=== PATIENT | female | born 1965 | race African-American/Black ===

== ENCOUNTER 2017-09-01 07:50 | Emergency (ER) | payer OTHER ==
[2017-09-01 08:12] VITALS: BP 156/93; PULSE 84; TEMP 98.4; BMI 34.9
--- NOTE | 2017-09-01 08:54 | PDOC ---
History of Present Illness - General Chief Complaint: Pain, Acute Stated Complaint: PAIN Time Seen by Provider: 09/01/17 08:24 History Source: Patient Exam Limitations: No Limitations - History of Present Illness Initial Comments: 09/01/17 08:52 Patient is a [52-year-old female history of hypertension denies any other medical history, presents with sudden onset last evening of left toe pain radiating up her foot denies any trauma. Denies any calf pain. No chest pain or shortness of breath.] Past Medical History: [Denies]. Allergies: No known allergies Medications: See medication list Family History: Non-contributory Social History: Denies smoking, alcohol use, or IVDU Review of Systems GENERAL/CONSTITUTIONAL: [No fever or chills. No weakness. No weight change.] HEAD, EYES, EARS, NOSE AND THROAT: [No change in vision. No ear pain or discharge. No sore throat. ] CARDIOVASCULAR: [No chest pain or shortness of breath.] RESPIRATORY: [No cough, wheezing, or hemoptysis.] GASTROINTESTINAL: [No nausea, vomiting, diarrhea or constipation. No rectal bleeding.] GENITOURINARY: [No dysuria, frequency, or change in urination.] MUSCULOSKELETAL: [Pain to left great toe. No neck or back pain.] SKIN AND BREASTS: [No rash or easy bruising. Erythematous base of left first toe ] NEUROLOGIC: [No headache, vertigo, loss of consciousness, or loss of sensation.] Physical Exam: GENERAL: [The patient is awake, alert, and fully oriented, in no acute distress. ] EYES: [Pupils equal, round and reactive to light, extraocular movements intact, sclera anicteric, conjunctiva clear.] ENT: [Ears normal, nares patent, oropharynx clear without exudates. Moist mucous membranes. No uvula deviation] NECK: [Normal range of motion, supple without lymphadenopathy, JVD, or masses.] LUNGS: [Breath sounds equal, clear to auscultation bilaterally. No wheezes, and no crackles.] HEART: [Regular rate and rhythm, normal S1 and S2 without murmur, rub or gallop. ] ABDOMEN: [Soft, nontender, normoactive bowel sounds. No guarding, no rebound. No masses. No bruising or abrasions] MUSCULOSKELETAL: [Normal range of motion, edema and pain to base of left great toe No clubbing or cyanosis. No cords, erythema, or tenderness. NEUROLOGICAL: [Cranial nerves II through XII grossly intact. Normal speech, normal gait.] SKIN: [Warm, Dry, normal turgor, no rashes or lesions noted.] Past History - Past Medical History Allergies/Adverse Reactions: Allergies Allergy/AdvReac Type Severity Reaction Status Date / Time Penicillins Allergy Verified 09/01/17 08:08 Home Medications: Ambulatory Orders Amlodipine Besylate [Norvasc -] 10 mg PO DAILY 07/24/12 Nebivolol HCl [Bystolic] 5 mg PO DAILY 07/24/12 Olmesartan/Hydrochlorothiazide [Benicar Hct 40-25 mg Tablet] 1 each PO DAILY Ibuprofen [Motrin -] 600 mg PO QID #28 tablet 09/01/17 CVA: No COPD: No DVT: No HTN: Yes - Immunization History Immunization Up to Date: Yes - Suicide/Smoking/Psychosocial Hx Smoking Status: Yes Smoking History: Current every day smoker Have you smoked in the past 12 months: Yes Number of Cigarettes Smoked Daily: 10 Information on smoking cessation initiated: No 'Breaking Loose' booklet given: 08/13/13 Hx Alcohol Use: No Drug/Substance Use Hx: No Substance Use Type: None *Physical Exam - Vital Signs Last Vital Signs Temp Pulse Resp BP Pulse Ox 98.4 F 84 15 156/93 99 09/01/17 08:09 09/01/17 08:09 09/01/17 08:09 09/01/17 08:09 09/01/17 08:09 ED Treatment Course - RADIOLOGY Radiology Studies Ordered: Category Date Time Status FOOT-LEFT [RAD] Stat Radiology 09/01/17 08:28 Taken Medical Decision Making - Medical Decision Making 09/01/17 08:53 A/P: Patient with left great toe pain, will rule out stress fracture versus gout , x-ray and uric acid. 09/01/17 15:18 Laboratory Results - last 24 hr 09/01/17 08:27 Uric Acid 2.9 Uric acid is unremarkable, wet read of x-ray shows no acute fracture dislocation will DC patient home , does have a bone spur. Follow-up with podiatry or orthopedics. Anti-inflammatories for pain. I discussed the physical exam findings, ancillary test results and final diagnoses with the patient. I answered all of the patient's questions. The patient was satisfied with the care received and felt comfortable with the discharge plan and treatment plan. The patient will call to arrange follow-up and will return to the Emergency Department with any new, persistent or worsening symptoms. *DC/Admit/Observation/Transfer Diagnosis at time of Disposition: Foot pain Qualifiers: Laterality: left Qualified Code(s): M79.672 - Pain in left foot - Discharge Dispostion Disposition: HOME Condition at time of disposition: Stable Admit: No - Prescriptions Prescriptions: Ibuprofen [Motrin -] 600 mg PO QID #28 tablet - Referrals Referrals: Marv Palumbo MD [Primary Care Provider] - - Patient Instructions Additional Instructions: Please follow-up with podiatry for evaluation as soon as possible. - Post Discharge Activity Forms/Work/School Notes: Back to Work
[2017-09-01] MEDS ORDERED: KETOROLAC TROMETHAMINE 60 MG/2 ML VIAL ONE (11:14)
[2017-09-01] MEDS ORDERED: KETOROLAC TROMETHAMINE 60 MG/2 ML VIAL IM ONE (11:15)
== END 2017-09-01 11:24 | disposition home or self-care (01) ==
LOC: JERFT 07:50
PROC: 3E0233Z Introduction of Anti-inflammatory into Muscle, Percutaneous Approach (ICD-10-PCS; principal; 2017-09-01)
DX: M79.672 Pain in left foot (principal); I10 Essential (primary) hypertension; F17.210 Nicotine dependence, cigarettes, uncomplicated
CPT/HCPCS: 36415; 73630-TC-LT; 84550; 99281-25

== ENCOUNTER 2020-03-04 08:41 | Emergency (ER) | payer OTHER ==
[2020-03-04 08:46] VITALS: BP 148/82; PULSE 80; TEMP 97.2; BMI 33.3
[2020-03-04] MEDS ORDERED: KETOROLAC TROMETHAMINE 60 MG/2 ML VIAL IM ONE (09:09)
[2020-03-04] MEDS ORDERED: KETOROLAC TROMETHAMINE 60 MG/2 ML VIAL ONE (09:10)
--- NOTE | 2020-03-04 09:23 | PDOC ---
History of Present Illness - General Chief Complaint: Pain, Acute Stated Complaint: LFT LEG INJURY Time Seen by Provider: 03/04/20 08:50 History Source: Patient - History of Present Illness Occurred: reports: other Lower Extremity Pain Location: left: knee Past History - Medical History Allergies/Adverse Reactions: Allergies Allergy/AdvReac Type Severity Reaction Status Date / Time Penicillins Allergy Verified 03/04/20 08:43 Home Medications: Ambulatory Orders Amlodipine Besylate [Norvasc -] 10 mg PO DAILY 07/24/12 Nebivolol HCl [Bystolic] 5 mg PO DAILY 07/24/12 Olmesartan/Hydrochlorothiazide [Benicar Hct 40-25 mg Tablet] 1 each PO DAILY 08/13/13 Ibuprofen [Motrin -] 600 mg PO QID #20 tablet 10/06/17 Naproxen 500 mg PO BID #30 tablet 03/04/20 CVA: No COPD: No DVT: No HTN: Yes - Reproductive History Is Patient Now?: No - Immunization History Immunization Up to Date: Yes - Psycho-Social/Smoking History Smoking Status: Yes Smoking History: Current every day smoker Have you smoked in the past 12 months: Yes Number of Cigarettes Smoked Daily: 20 Information on smoking cessation initiated: No 'Breaking Loose' booklet given: 10/06/17 - Substance Abuse Hx (Audit-C & DAST Scrn) How often the patient has a drink containing alcohol: Monthly or less Number of drinks the patient has on a typical day: 1 or 2 Score: In Men: 4 or > Positive; In Women: 3 or > Positive: 1 Screen Result (Pos requires Nsg. Audit-10AR): Negative In the last yr the pt used illegal drug/Rx for NonMed reason: No Score: Yes response is considered Positive: 0 Screen Result (Positive result requires Nsg. DAST-10): Negative Review of Systems - Review of Systems Constitutional: No: Chills, Fever Musculoskeletal: Yes: Joint Pain. No: Joint Swelling *Physical Exam - Vital Signs Last Vital Signs Temp Pulse Resp BP Pulse Ox 97.2 F L 80 16 148/82 99 03/04/20 08:44 03/04/20 08:44 03/04/20 08:44 03/04/20 08:44 03/04/20 08:44 - Physical Exam 03/04/20 09:43 walking w/ limp into ED General Appearance: Yes: Appropriately Dressed, Mild Distress HEENT: positive: Normal Voice Neck: positive: Supple Respiratory/Chest: negative: Respiratory Distress Extremity: positive: Normal Inspection, Normal Range of Motion, Other (pain to joint w/ ROM, + limp here). negative: Tender, Swelling Integumentary: positive: Dry, Warm Neurologic: positive: Fully Oriented, Alert, Normal Mood/Affect Medical Decision Making - Medical Decision Making 03/04/20 09:40 54-year-old morbidly obese female with history of HTN, here with L knee pain that started 6 days ago, achy diffuse, 8 out of 10 and worse with weight bearing. Taking 400 mg Motrin with no relief. Denies trauma or other obvious inciting factors. No history of knee pain, known arthritis or gout. No sig swelling, f/c see exam Atraumatic knee pain M/l MSK. i.e overuse, obesity may play a role Dose of toradol given here Dc w/ crutches, pain control and ortho f/u as needed Discharge - Discharge Information Problems reviewed: Yes Clinical Impression/Diagnosis: Knee pain, left Qualifiers: Chronicity: acute Qualified Code(s): M25.562 - Pain in left knee Condition: Good Disposition: HOME - Additional Discharge Information Prescriptions: Naproxen 500 mg PO BID #30 tablet - Follow up/Referral Referrals: Warren Sánchez MD [Staff Physician] - - Patient Discharge Instructions Patient Printed Discharge Instructions: DI for Knee Pain Additional Instructions: Take medication as directed for your knee pain and if pain persist after 2 weeks please follow-up with Dr. Sánchez of orthopedics - Post Discharge Activity Work/Back to School Note: Back to Work
== END 2020-03-04 09:48 | disposition home or self-care (01) ==
LOC: JERFT 08:41
PROC: 3E0233Z Introduction of Anti-inflammatory into Muscle, Percutaneous Approach (ICD-10-PCS; principal; 2020-03-04)
DX: M25.562 Pain in left knee (principal)
CPT/HCPCS: 99284-25